=== PATIENT | male | born 1975 | race Caucasian/White ===

== ENCOUNTER 2017-12-09 06:13 | Emergency (ER) | payer SELFPAY ==
[2017-12-09] MEDS ORDERED: LIDOCAINE HCL 2% 20ML ONE (06:42)
== END 2017-12-09 07:41 | disposition home or self-care (01) ==
LOC: EDH 06:13
DX: L02.412 Cutaneous abscess of left axilla (principal); Z88.8 Allergy status to other drugs, medicaments and biological substances; Z72.0 Tobacco use
CPT/HCPCS: 10060; 99283; J3490

== ENCOUNTER 2017-12-13 07:51 | Emergency (ER) | payer SELFPAY ==
[2017-12-13] MEDS ORDERED: L.E.T. GEL 4%/0.5%/0.18% 3ML 3 ML/SYR SYG TP ONE ×2 (08:15→08:25)
[2017-12-13] MEDS ORDERED: LIDOCAINE HCL-MPF 1% 2ML VIAL ONE (08:57)
== END 2017-12-13 09:26 | disposition home or self-care (01) ==
LOC: EDH 07:51
DX: L02.412 Cutaneous abscess of left axilla (principal); Z88.2 Allergy status to sulfonamides; Z88.8 Allergy status to other drugs, medicaments and biological substances; Z72.0 Tobacco use
CPT/HCPCS: 10060; 99283; J3490

== ENCOUNTER 2019-04-07 18:37 | Emergency (ER) | payer OTHER | END 2019-04-07 20:47 | disposition home or self-care (01) | LOC: EDH 18:37 | DX: L03.221 Cellulitis of neck (principal); Z72.0 Tobacco use; Z88.2 Allergy status to sulfonamides; Z88.8 Allergy status to other drugs, medicaments and biological substances ==